=== PATIENT | male | born 1985 | race Two or more races ===

== ENCOUNTER 2023-06-23 12:54 | Emergency (ER) | payer OTHER ==
[~2023-06-23] VITALS: Ht 182.9 cm; Wt 81.6 kg
== END 2023-06-23 15:36 | disposition home or self-care (01) ==
LOC: ER 12:54
DX: S63.682A Other sprain of left thumb, initial encounter (principal); X58.XXXA Exposure to other specified factors, initial encounter; Y93.B9 Activity, other involving muscle strengthening exercises; Y92.89 Other specified places as the place of occurrence of the external cause; Y99.1 Military activity